=== PATIENT | female | born 1945 | race African-American/Black ===

== ENCOUNTER 2023-11-26 07:21 | Outpatient (CLI) | payer MEDICARE | END 2023-11-26 07:22 | disposition home or self-care (01) | LOC: CSHCP 07:21 | PROVIDERS: ATTEND Internal Medicine | DX: J96.11 Chronic respiratory failure with hypoxia (principal); J98.4 Other disorders of lung | CPT/HCPCS: 94010; 94726; 94729; 94760 ==

== ENCOUNTER 2025-01-18 08:45 | Outpatient (CLI) | payer MEDICARE | END 2025-01-18 08:46 | disposition home or self-care (01) | LOC: CSHSLEEP 08:45 | PROVIDERS: ATTEND Internal Medicine | DX: G47.33 Obstructive sleep apnea (adult) (pediatric) (principal); R06.83 Snoring; E66.9 Obesity, unspecified; Z68.27 Body mass index [BMI] 27.0-27.9, adult; G47.61 Periodic limb movement disorder | CPT/HCPCS: 95811 ==